=== PATIENT | male | born 1965 | race Caucasian/White ===

== ENCOUNTER 2019-08-25 | Emergency (ER) | payer OTHER ==
[2019-08-25] MEDS ORDERED: AMLODIPINE BESY10 MG PO (14:25)
[2019-08-25] MEDS ORDERED: SILVADENE1 % EX (16:18)
[2019-08-25] MEDS ORDERED: CEPHALEXIN500 M1 PO (16:19)
== END 2019-08-25 17:20 | disposition home or self-care (01) | DRG 935 ==
PROC: 2W2HX4Z Dressing of Left Thumb using Bandage (ICD-10-PCS; principal; 2019-08-25)
DX: T23.212A Burn of second degree of left thumb (nail), initial encounter (principal); I10 Essential (primary) hypertension; X08.8XXA Exposure to other specified smoke, fire and flames, initial encounter; Y93.89 Activity, other specified; Y92.009 Unspecified place in unspecified non-institutional (private) residence as the place of occurrence of the external cause